=== PATIENT | female | born 1955 | race Caucasian/White ===

== ENCOUNTER 2020-07-02 07:16 | Outpatient (CLI) | payer OTHER, SELFPAY ==
[2020-07-02 07:52] LABS: Hematocrit 39.2 % (37.0-47.0); Hemoglobin 12.8 g/dL (12.0-15.0); Mean Corpuscular HGB Conc 32.7 g/dl (32-36); Mean Corpuscular Hemoglobin 29.3 pg (26-34); Mean Corpuscular Volume 89.7 fl (80-100); Platelet Count Result 235 k/mm3 (150-375); Red Blood Count 4.37 M/mm3 (4.2-5.4); Red Cell Distribution Width 12.9 % (11.5-14.5); White Blood Count 4.1 K/mm3 (4.5-10.0)
[2020-07-02 08:04] LABS: Alanine Aminotransferase 17 U/L (4-35); Albumin Level 3.8 g/dL (3.5-5.1); Alkaline Phosphatase 58 U/L (38-126); Anion Gap 5 mmol/L (8-16); Aspartate Amino Transferase 25 U/L (14-36); Bilirubin,Total 0.5 mg/dL (0.2-1.3); Blood Urea Nitrogen 15 mg/dL (7-17); Calcium 9.1 mg/dL (8.4-10.2); Carbon Dioxide 30 mmol/L (22-30); Chloride 104 mmol/L (98-107); Cholesterol 172 mg/dL (0-200); Estimated Glomerular Filt Rate 56; Glucose 102 mg/dL (65-105); HDL Direct 40 mg/dL; Potassium 4.3 mmol/L (3.4-5.0); Sodium 139 mmol/L (137-145); Triglycerides 91 mg/dL (<150)
[2020-07-02 08:15] LABS: LDL Cholesterol Direct 102 mg/dL
== END 2020-07-02 07:17 | disposition home or self-care (01) ==
LOC: ANHLAB 07:18
PROVIDERS: PCP Family Medicine; Visit Provider Physician Assistant Medical
DX: E78.2 Mixed hyperlipidemia (principal); I10 Essential (primary) hypertension
CPT/HCPCS: 36415; 80053; 80061; 84443; 85027

== ENCOUNTER 2020-07-26 07:16 | Outpatient (CLI) | payer OTHER, SELFPAY ==
[2020-07-26 08:10] LABS: Basophils Percent Auto 0.8 % (0.2-1.2); Eosinophils Absolute Auto 0.1 K/mm3 (0-0.3); Eosinophils Percent Auto 2.4 % (0-4.4); Hematocrit 39.8 % (37.0-47.0); Hemoglobin 13.2 g/dL (12.0-15.0); Immature Granulocyte Absolute 0.01 K/mm3 (0.00-0.031); Immature Granulocyte Percent A 0.2 % (0-0.5); Lymphocytes Absolute Auto 1.11 K/mm3 (0.9-3.2); Lymphocytes Percent Auto 22.1 % (18.3-44.2); Mean Corpuscular HGB Conc 33.2 g/dl (32-36); Mean Corpuscular Hemoglobin 29.6 pg (26-34); Mean Corpuscular Volume 89.2 fl (80-100); Mean Platelet Volume 8.8 fl (7.4-10.4); Monocytes Absolute Auto 0.3 K/mm3 (0.1-0.6); Monocytes Percent Auto 6.8 % (2.6-8.5); Neutrophils Absolute Auto 3.4 K/mm3 (1.3-6.7); Neutrophils Percent Auto 67.7 % (45.5-73.1); Platelet Count Result 215 k/mm3 (150-375); Red Blood Count 4.46 M/mm3 (4.2-5.4); Red Cell Distribution Width 12.9 % (11.5-14.5)
[2020-07-26 08:25] LABS: Alanine Aminotransferase 16 U/L (4-35); Cholesterol 147 mg/dL (0-200); Creatine Kinase 106 U/L (30-135); HDL Direct 46 mg/dL; Triglycerides 91 mg/dL (<150)
[2020-07-26 08:36] LABS: LDL Cholesterol Direct 76 mg/dL
== END 2020-07-26 07:17 | disposition home or self-care (01) ==
PROVIDERS: PCP Family Medicine; Visit Provider Physician Assistant Medical
DX: Z13.220 Encounter for screening for lipoid disorders (principal); D72.9 Disorder of white blood cells, unspecified; E78.2 Mixed hyperlipidemia
CPT/HCPCS: 36415; 80061; 82550; 84460; 85025

== ENCOUNTER → 2020-08-31 14:18 | Outpatient (CLI) | payer OTHER, SELFPAY ==
--- NOTE | ~2020-08-31 | XR_ITS ---
EXAMINATION: XR hip RT 2V w AP pelvis DATE: 08/31/2020 14:50 INDICATION: Right hip pain. TECHNIQUE: An anteroposterior view pelvis and 2 views of right hip were obtained. COMPARISON: None. FINDINGS: Bone alignment is normal. No fracture. There is moderate lumbar spondylosis. There is mild osteoarthritis of the hips. IMPRESSION: 1. Mild osteoarthritis of the hips. Reviewed, dictated and finalized at location A. [employer] CONSULTANT
== END ==
PROVIDERS: PCP Family Medicine; Visit Provider Physician Assistant Medical
DX: M25.551 Pain in right hip (principal); M16.0 Bilateral primary osteoarthritis of hip
CPT/HCPCS: 73502

== ENCOUNTER 2022-01-15 12:06 | Emergency (ER) | payer OTHER, SELFPAY ==
--- NOTE | ~2022-01-15 | XR_ITS ---
XR finger 3rd RT min 2V DATE: 01/15/2022 12:43 INDICATION: Laceration to distal tip of third digit TECHNIQUE: 3 portable views COMPARISON: None FINDINGS: There is prominent soft tissue bandage around the third digit. There is osteophyte is at the distal interphalangeal joint. No fracture or dislocation, periosteal reaction or bone destruction is detected. No apparent radiopaq ue soft tissue foreign body. IMPRESSION: No fracture or dislocation or radiopaque foreign body DIP osteoarthritis Reviewed, dictated and finalized at location A.
[2022-01-15 12:08] VITALS: BP 105/74; PULSE 91; RESP 18; TEMP 36.6; O2SAT 99
--- NOTE | 2022-01-15 12:49 | ED.GENADULT ---
HPI - General Adult General Chief complaint: Wound/Laceration Stated complaint: FINGER LAC Time Seen by Provider: 01/15/22 12:27 History of Present Illness HPI narrative: 66-year-old female presenting to the emergency department for evaluation of a avulsion laceration to her right third finger. Patient states she was injured her finger on a fan of a lawnmower. Patient initially presented to the [facility] care but was referred to the emergency department. Patient denies any other pain or injury. Patient states her tetanus is up-to-date, approximately 7 to 8 years ago. Patient does have an allergy to penicillin, hives. Related Data Allergies Allergy/AdvReac Type Severity Reaction Status Date / Time aspirin Allergy Unknown Unknown Verified 01/15/22 12:26 Penicillins Allergy Unknown Unknown Verified 01/15/22 12:26 rosuvastatin [From Crestor] AdvReac Intermediate muscle Verified 01/15/22 12:26 aches Review of Systems Review of Systems: CONSTITUTIONAL: Denies fever, chills, or sweats. EYES: Denies visual changes, redness, or discharge. ENT: Denies rhinorrhea, congestion, sore throat, or otalgia. CARDIOVASCULAR: Denies chest pain, palpitations, or edema. RESPIRATORY: Denies cough or dyspnea. GASTROINTESTINAL: Denies abdominal pain, nausea, vomiting, or diarrhea. GENITOURINARY: Denies dysuria or hematuria. SKIN: See HPI MUSCULOSKELETAL: Generalized pain of the affected finger. NEUROLOGIC: Denies headache, numbness, or weakness. [facility] Past Medical History Medical History Adult BMI 45.0-49.9 kg/sq m BMI 40.0-44.9, adult Morbid obesity Family History Family History Father Hypertension Mother Hypertension Family history of heart disease in male family member before age 55 Sibling Family history of malignant neoplasm of bone Social History Social History Alcohol intake: never Substance use: never Substance use type: does not use Additional living arrangements comments: Additional occupation/education comments: merchandising Gender identity (if verbalized by the patient): Female Sexual Orientation (if Verbalized by the Patient): Straight or Heterosexual Spiritual care concerns: No Agree to blood products: Yes Exam Narrative: APPEARANCE: Well appearing, no pain, no distress, well-nourished. HEAD: normocephalic, atraumatic. EYES: PERRLA/EOMI, conjunctivae clear. NOSE: Normal no drainage NECK: Supple. No adenopathy, no masses. RESPIRATORY: Airway patent, respirations nonlabored. Clear to auscultation bilaterally, no rales, rhonchi, wheezing. MUSCULOSKELETAL: Laceration to the tip of the distal third finger. Laceration is in close proximity to the fingernail but no involvement of the nail NEURO: Alert. Cranial nerves II through XII intact. Grossly intact SKIN: 2 cm laceration to distal third finger Course Vital Signs Vital signs: Vital Signs Temperature 97.9 F 01/15/22 12:08 Pulse Rate 91 01/15/22 12:08 Respiratory Rate 18 01/15/22 12:08 Blood Pressure 105/74 01/15/22 12:08 Pulse Oximetry 99 01/15/22 12:08 Oxygen Delivery Room Air 01/15/22 12:08 Temperature 97.9 F 01/15/22 12:08 Pulse Rate 91 01/15/22 12:08 Respiratory Rate 18 01/15/22 12:08 Blood Pressure 105/74 01/15/22 12:08 Pulse Oximetry 99 01/15/22 12:08 Oxygen Delivery Room Air 01/15/22 12:08 Procedures Laceration Laceration 1: Date: 01/15/22 Time: 14:53 Site: upper extremity and hand (right middle finger) Size (cm): 3 Description: linear Amount of anesthesia used (mL): 6 Pre-repair: wound explored and irrigated ====== Skin Level ====== Skin layer closed with: prolene Size (cm): 4-0 Number of sutures: 3 Technique: simple, interrupted =====
[2022-01-15] MEDS: CEPHALEXIN 250 MG CAPSULE PO (16:21)
== END 2022-01-15 16:22 | disposition home or self-care (01) ==
PROVIDERS: Emergency Provider Emergency Medicine; PCP Family Medicine
DX: S61.212A Laceration without foreign body of right middle finger without damage to nail, initial encounter (principal); W26.8XXA Contact with other sharp object(s), not elsewhere classified, initial encounter
CPT/HCPCS: 11740; 12002; 73140; 99283; A9270

== ENCOUNTER 2022-12-25 07:45 | Outpatient (CLI) | payer MEDICARE, OTHER, SELFPAY ==
[2022-12-25 08:07] LABS: Eosinophils Absolute Auto 0.1 K/mm3 (0-0.3); Eosinophils Percent Auto 2.7 % (0-4.4); Hematocrit 42.2 % (37.0-47.0); Hemoglobin 13.9 g/dL (12.0-15.0); Immature Granulocyte Absolute 0.02 K/mm3 (0.00-0.031); Immature Granulocyte Percent A 0.5 % (0-0.5); Lymphocytes Absolute Auto 0.82 K/mm3 (0.9-3.2); Lymphocytes Percent Auto 20.4 % (18.3-44.2); Mean Corpuscular HGB Conc 32.9 g/dl (32-36); Mean Corpuscular Hemoglobin 30.4 pg (26-34); Mean Corpuscular Volume 92.3 fl (80-100); Mean Platelet Volume 8.9 fl (7.4-10.4); Monocytes Absolute Auto 0.3 K/mm3 (0.1-0.6); Monocytes Percent Auto 7.2 % (2.6-8.5); Neutrophils Absolute Auto 2.7 K/mm3 (1.3-6.7); Neutrophils Percent Auto 68.2 % (45.5-73.1); Platelet Count Result 211 k/mm3 (150-375); Red Blood Count 4.57 M/mm3 (4.2-5.4); Red Cell Distribution Width 13.5 % (11.5-14.5)
[2022-12-25 08:20] LABS: Alanine Aminotransferase 17 U/L (6-35); Albumin Level 4.2 g/dL (3.5-5.1); Alkaline Phosphatase 57 U/L (38-126); Anion Gap 7 mmol/L (8-16); Aspartate Amino Transferase 20 U/L (14-36); Bilirubin,Total 0.7 mg/dL (0.2-1.3); Blood Urea Nitrogen 16 mg/dL (7-17); Calcium 8.9 mg/dL (8.4-10.2); Carbon Dioxide 26 mmol/L (22-30); Chloride 106 mmol/L (98-107); Cholesterol 206 mg/dL (0-200); Estimated Glomerular Filt Rate 56; Glucose 104 mg/dL (65-110); HDL Direct 46 mg/dL; Sodium 139 mmol/L (137-145); Triglycerides 142 mg/dL (<150)
[2022-12-25 08:31] LABS: LDL Cholesterol Direct 115 mg/dL
[2022-12-25 08:57] LABS: Free T4 Free Thyroxine 1.29 ng/mL (0.78-2.19)
[2022-12-28 06:33] LABS: Thyroid Peroxidase Antibodies <1 IU/mL (<9)
== END 2022-12-25 07:46 | disposition home or self-care (01) ==
PROVIDERS: PCP Family Medicine; Visit Provider Physician Assistant Medical
DX: Z13.29 Encounter for screening for other suspected endocrine disorder (principal); K59.09 Other constipation; I10 Essential (primary) hypertension; E78.5 Hyperlipidemia, unspecified; E66.01 Morbid (severe) obesity due to excess calories; D72.9 Disorder of white blood cells, unspecified
CPT/HCPCS: 36415; 80053; 80061; 84439; 84443; 85025; 86376

== ENCOUNTER 2023-01-09 07:16 | Outpatient (CLI) | payer MEDICARE, OTHER, SELFPAY ==
[2023-01-09 07:53] LABS: Basophils Absolute Auto 0.1 K/mm3 (0.0-0.1); Basophils Percent Auto 1.2 % (0.2-1.2); Eosinophils Absolute Auto 0.1 K/mm3 (0-0.3); Eosinophils Percent Auto 2.4 % (0-4.4); Hematocrit 40.5 % (37.0-47.0); Hemoglobin 13.4 g/dL (12.0-15.0); Immature Granulocyte Absolute 0.01 K/mm3 (0.00-0.031); Immature Granulocyte Percent A 0.2 % (0-0.5); Lymphocytes Absolute Auto 0.85 K/mm3 (0.9-3.2); Lymphocytes Percent Auto 20.2 % (18.3-44.2); Mean Corpuscular HGB Conc 33.1 g/dl (32-36); Mean Corpuscular Hemoglobin 30.2 pg (26-34); Mean Corpuscular Volume 91.4 fl (80-100); Mean Platelet Volume 9.3 fl (7.4-10.4); Monocytes Absolute Auto 0.4 K/mm3 (0.1-0.6); Monocytes Percent Auto 8.3 % (2.6-8.5); Neutrophils Absolute Auto 2.8 K/mm3 (1.3-6.7); Neutrophils Percent Auto 67.7 % (45.5-73.1); Platelet Count Result 234 k/mm3 (150-375); Red Blood Count 4.43 M/mm3 (4.2-5.4); Red Cell Distribution Width 13.1 % (11.5-14.5); White Blood Count 4.2 K/mm3 (4.5-10.0)
[2023-01-09 08:08] LABS: Anion Gap 5 mmol/L (8-16); Blood Urea Nitrogen 22 mg/dL (7-17); Calcium 8.6 mg/dL (8.4-10.2); Carbon Dioxide 28 mmol/L (22-30); Chloride 105 mmol/L (98-107); Estimated Glomerular Filt Rate 50; Glucose 101 mg/dL (65-110); Potassium 3.9 mmol/L (3.4-5.0); Sodium 138 mmol/L (137-145)
== END 2023-01-09 07:17 | disposition home or self-care (01) ==
PROVIDERS: PCP Family Medicine; Visit Provider Physician Assistant Medical
DX: D72.9 Disorder of white blood cells, unspecified (principal); N28.9 Disorder of kidney and ureter, unspecified
CPT/HCPCS: 36415; 80048; 85025

== ENCOUNTER 2023-02-12 07:31 | Outpatient (CLI) | payer MEDICARE, OTHER, SELFPAY ==
[2023-02-12 07:57] LABS: Anion Gap 5 mmol/L (8-16); Blood Urea Nitrogen 13 mg/dL (7-17); Calcium 8.8 mg/dL (8.4-10.2); Carbon Dioxide 30 mmol/L (22-30); Chloride 103 mmol/L (98-107); Estimated Glomerular Filt Rate 50; Glucose 106 mg/dL (65-110); Sodium 138 mmol/L (137-145)
== END 2023-02-12 07:32 | disposition home or self-care (01) ==
LOC: ANHLAB 07:33
PROVIDERS: PCP Family Medicine; Visit Provider Physician Assistant Medical
DX: N28.9 Disorder of kidney and ureter, unspecified (principal)
CPT/HCPCS: 36415; 80048

== ENCOUNTER 2023-04-01 07:47 | Outpatient (CLI) | payer MEDICARE, OTHER, SELFPAY ==
--- NOTE | ~2023-04-01 | NM_ITS ---
EXAMINATION: NM magdi stress w perfusion DATE: 04/01/2023 10:08 INDICATION: Chest pain. TECHNIQUE: Rest images were obtained following intravenous administration of 9 mCi Tc99m tetrofosmin (Myoview). The patient was infused intravenously with Lexiscan (regadenoson). Then, 28 mCi Tc99m tetr ofosmin (Myoview) was administered intravenously, and stress images were obtained. Data was reconstru cted into short axis and horizontal and vertical long axis SPECT images. Gated SPECT images were also obtained. COMPARISON: Myocardial perfusion imaging 01/01/17 FINDINGS: There is no definite reversible or fixed perfusion abnormality to suggest ischemia or infar ction. There is no segmental wall motion abnormality. Left ventricular ejection fraction measures > 70%. IMPRESSION: 1. No definite ischemia or infarct. 2. Normal left ventricular ejection fraction measuring >70%. Reviewed, dictated and finalized at location A.
--- NOTE | 2023-04-01 08:39 | EST_ITS ---
Patient Info Name: Taylor Mcfarland Age: 67 years : 1955 Gender: Female Ht: 49 in Wt: 212 lbs BSA: 1.91 m2 HR: 65 bpm BP: 140 / 82 mmHg Heart Rhythm: Sinus Rhythm Exam Date: 04/01/2023 9:00 AM Exam Location: [facility] Stress Patient Status: Outpatient Admit Date: 04/01/2023 Staff Ordering Physician: Bryson Degroot NP Attending Provider: Cesilia Gutiérrez Exercise Technologist: Renetta Allen CT Exercise Physician: Bakari Storey DO Exam Type: CA stress magdi w NM Study Info Indications R07.89 - Other chest pain A regadenoson stress test was performed. Summary 1. 1. Negative lexiscan stress test for ischemic ST changes by ECG criteria. 2. 2. Stable hemodynamics throughout the test. 3. 3. Nuclear scan to follow and will be reported separately. Please correlate with it. 4. 4. Patient informed of the above results. Protocol: Lexiscan Stress ECG Details Stage: REST Duration (min): 0 min : 56 sec HR (bpm): 67 SBP (mmHg): 140 DBP (mmHg): 82 Stage: REST Duration (min): 5 min : 12 sec HR (bpm): 66 SBP (mmHg): 140 DBP (mmHg): 82 Stage: STAGE 1 Duration (min): 0 min : 59 sec HR (bpm): 89 SBP (mmHg): 130 DBP (mmHg): 64 Stage: RECOVERY Duration (min): 1 min : 0 sec HR (bpm): 93 SBP (mmHg): 130 DBP (mmHg): 64 Stage: RECOVERY Duration (min): 2 min : 0 sec HR (bpm): 85 SBP (mmHg): 130 DBP (mmHg): 64 Stage: RECOVERY Duration (min): 3 min : 0 sec HR (bpm): 83 SBP (mmHg): 147 DBP (mmHg): 61 Stage: RECOVERY Duration (min): 3 min : 39 sec HR (bpm): 80 SBP (mmHg): 147 DBP (mmHg): 61 Rest HR: 66 bpm Peak HR: 96 bpm Rest Sys BP: 140 mmHg Peak Sys BP: 147 mmHg Max Pred HR: 155 bpm % Max Pred HR: 62 % Target HR: 132 bpm Max RPP: 14,112 bpm*mmHg Termination Reason: Completed protocol Cardiac Symptoms: Shortness of breath Total Time: 1 min : 0 sec Rest Ceballos BP: 82 mmHg Peak Ceballos BP: 61 mmHg Total Dose: 0.4 mg Resting ECG Sinus rhythm. Stress ECG No ST changes. Arrhythmias None. Report Signatures
== END 2023-04-01 07:48 | disposition home or self-care (01) ==
PROVIDERS: PCP Family Medicine; Visit Provider Physician Assistant Medical
DX: R07.9 Chest pain, unspecified (principal)
CPT/HCPCS: 78452; 93017; A9502; J2785

== ENCOUNTER → 2023-04-17 10:57 | Outpatient (CLI) | payer MEDICARE, OTHER, SELFPAY ==
--- NOTE | ~2023-04-17 | MM_ITS ---
EXAMINATION: MM screening jesus BI w ashly HISTORY: Screening mammogram TECHNIQUE: Craniocaudal and mediolateral oblique 3-D tomosynthesis images were obtained and synthetic 2-D images were generated. CAD analysis was submitted and interpreted. COMPARISON: 12/19/2016, 08/30/2015 BREAST PARENCHYMAL COMPOSITION: The breasts are almost entirely fatty. FINDINGS: No suspicious mass, calcification, or architectural distortion are identified in either tyrell ast to suggest malignancy. There has been no suspicious interval change. IMPRESSION: 1. No mammographic evidence of malignancy. 2. Recommend routine screening mammography in one year. BI-RADS Category 1: Negative Reviewed, dictated and finalized at location A.
--- NOTE | ~2023-04-17 | DEXA_ITS ---
Bone Density Report Name: ANDREINA BAUMANN Age: 67 Sex: Female Ethnicity: White Date of : 1955 Indication: postmenopausal; screening for osteoporosis; parental hip fracture; Referring Provider: Cesilia Gutiérrez Study: Bone densitometry was performed. Exam Date: April 17, 2023 Accession number: [id number] Bone Density: Region BMD T-score Z-score Classification AP Spine (L1-L4) 1.041 -0.1 1.8 Normal Femoral Neck (Left) 0.638 -1.9 -0.3 Osteopenia Total Hip (Left) 0.866 -0.6 0.6 Normal Femoral Neck (Right) 0.626 -2.0 -0.5 Osteopenia Total Hip (Right) 0.750 -1.6 -0.3 Osteopenia Total Hip Mean 0.808 -1.1 0.2 Osteopenia World Health Organization criteria for BMD impression classify patients as: Normal (T-score at or above -1.0), Osteopenia (T-score between -1.0 and -2.5), or Osteoporosis (T-score at or below -2.5). 10-year Fracture Risk(1): Major Osteoporotic Fracture 17% Hip Fracture 1.5% Reported Risk Factors: [place] (), Neck BMD=0.626, BMI=41.6, parental fracture (1) FRAX(R) Version 3.08. Fracture probability calculated for an untreated patient. Fracture probability may be lower if the patient has received treatment. Clinical Information Provided by Patient: Parent has had a hip fracture Patient maximum height was 60 Menopause Age: 52 Does not regularly consume dairy products Drinks caffeinated beverages Onset of menses at age 16 Number of children 2 Impression: The patient has low bone mass, based on the Right Femoral Neck T-score. The patient has an estimated ten-year risk of hip fracture of 1.5% and an estimated ten-year risk of major fracture of 17%, based on the WHO FRAX algorithm. The patient has risk factors, including: parental hip fracture. Discussion: BONE DENSITY IS LOW AT ONE OR MORE SKELETAL SITES. This patient's lowest T-score is low at one or more skeletal sites. It meets the World Health Organization's (WHO) criteria for ?low bone mass? (T-score between -1.0 and -2.5). The patient's 10-year risk of fracture as calculated by FRAX is less than the threshold where pharmacological therapy is recommended by the National Osteoporosis Foundation (NOF). However, all treatment decisions require clinical judgment and consideration of individual patient factors, including patient preferences, comorbidities, previous drug use, risk factors not captured in the FRAX model (e.g., frailty, falls, vitamin D deficiency, increased bone turnover, interval significant decline in bone density) and possible under or overestimation of fracture risk by FRAX. The patient should follow a healthful lifestyle (good nutrition with adequate calcium and vitamin D, and appropriate weight-bearing exercise). Follow-Up: Consider repeating this study in 2 to 3 years to reassess this patient's status, o
== END ==
PROVIDERS: PCP Physician Assistant Medical; Visit Provider Physician Assistant Medical
DX: Z12.31 Encounter for screening mammogram for malignant neoplasm of breast (principal); Z78.0 Asymptomatic menopausal state; M85.89 Other specified disorders of bone density and structure, multiple sites
CPT/HCPCS: 77063; 77067; 77080

== ENCOUNTER 2023-05-20 08:39 | Outpatient (CLI) | payer MEDICARE, OTHER, SELFPAY ==
[2023-05-20 09:18] LABS: Albumin Level 3.7 g/dL (3.5-5.1); Anion Gap 7 mmol/L (8-16); Blood Urea Nitrogen 13 mg/dL (7-17); Calcium 8.5 mg/dL (8.4-10.2); Carbon Dioxide 25 mmol/L (22-30); Chloride 106 mmol/L (98-107); Estimated Glomerular Filt Rate 50; Glucose 119 mg/dL (65-110); Phosphorus 3.1 mg/dL (2.5-4.5); Potassium 3.9 mmol/L (3.4-5.0); Sodium 138 mmol/L (137-145)
[2023-05-20 09:24] LABS: Complement C3 98 mg/dL (88-165)
[2023-05-20 10:31] LABS: Creatinine Urine 101.1 mg/dL; Total Protein Urine Random 13 mg/dL; Ur Ttl Prot Creatinine Ratio 0.13 mg/mg (0-0.20)
[2023-05-22 15:38] LABS: Albumin 3.6 g/dL (3.8-4.8); Alpha 1 Globulin 0.3 g/dL (0.2-0.3); Alpha 2 Globulin 0.6 g/dL (0.5-0.9); Beta 1 Globulin 0.4 g/dL (0.4-0.6); Gamma Globulin 0.8 g/dL (0.8-1.7)
[2023-05-24 01:54] LABS: Anti Glomerular Basement Memb <1.0 AI (<1.0)
[2023-05-25 22:49] LABS: ANCA Screen ATYP P-ANCA POS (Negative); Atyp PANCA Ttr Reflex Chg Test YES; Atypical P-ANCA Titer 1:40 Titer (<1:20)
[2023-05-26 00:12] LABS: Creatinine, Random Urine 155 mg/dL (20-275); Total Protein/Creatinine Ratio 52 mg/g creat (24-184)
== END 2023-05-20 08:40 | disposition home or self-care (01) ==
PROVIDERS: PCP Family Medicine; Visit Provider Internal Medicine Nephrology
DX: I12.9 Hypertensive chronic kidney disease with stage 1 through stage 4 chronic kidney disease, or unspecified chronic kidney disease (principal); N18.31 Chronic kidney disease, stage 3a
CPT/HCPCS: 36415; 80069; 82570; 83520; 84155; 84156; 84165; 84166; 86036; 86038; 86160; 86225

== ENCOUNTER → 2023-05-20 13:11 | Outpatient (CLI) | payer MEDICARE, OTHER, SELFPAY ==
--- NOTE | ~2023-05-20 | US_ITS ---
EXAMINATION: US renal BI DATE: 05/20/2023 13:42 INDICATION: Stage IIIa chronic kidney disease TECHNIQUE: Multiple ultrasound grayscale images of the kidneys were obtained. COMPARISON: None. FINDINGS: The right kidney measures 9.0 x 4.5 x 5.3 cm. The left kidney measures 10.3 x 4.0 x 4.8 cm. The kidne ys demonstrate normal echogenicity. There is no hydronephrosis in either kidney. No stones identifie d. The bladder is normal. IMPRESSION: 1. Normal kidneys without hydronephrosis. Reviewed, dictated and finalized at location A.
== END ==
PROVIDERS: PCP Family Medicine; Visit Provider Internal Medicine Nephrology
DX: I12.9 Hypertensive chronic kidney disease with stage 1 through stage 4 chronic kidney disease, or unspecified chronic kidney disease (principal); N18.31 Chronic kidney disease, stage 3a
CPT/HCPCS: 76775

== ENCOUNTER 2023-10-03 09:18 | Outpatient (CLI) | payer MEDICARE, OTHER, SELFPAY ==
[2023-10-03 09:59] LABS: Anion Gap 7 mmol/L (8-16); Blood Urea Nitrogen 13 mg/dL (7-17); Calcium 9.2 mg/dL (8.4-10.2); Carbon Dioxide 24 mmol/L (22-30); Chloride 108 mmol/L (98-107); Estimated Glomerular Filt Rate 55; Glucose 116 mg/dL (65-110); Phosphorus 3.5 mg/dL (2.5-4.5); Potassium 4.3 mmol/L (3.4-5.0); Sodium 139 mmol/L (137-145)
[2023-10-03 10:02] LABS: Creatinine Urine 111.5 mg/dL; Total Protein Urine Random 7 mg/dL; Ur Ttl Prot Creatinine Ratio 0.06 mg/mg (0-0.20)
== END 2023-10-03 09:19 | disposition home or self-care (01) ==
PROVIDERS: PCP Family Medicine; Visit Provider Internal Medicine Nephrology
DX: E55.9 Vitamin D deficiency, unspecified (principal); I12.9 Hypertensive chronic kidney disease with stage 1 through stage 4 chronic kidney disease, or unspecified chronic kidney disease; N25.81 Secondary hyperparathyroidism of renal origin; N18.31 Chronic kidney disease, stage 3a
CPT/HCPCS: 36415; 80069; 82306; 82570; 83970; 84156

== ENCOUNTER 2023-11-14 10:06 | Outpatient (CLI) | payer MEDICARE, OTHER, SELFPAY | END 2023-11-14 10:07 | disposition home or self-care (01) | LOC: ANHAUDIO 10:07 | PROVIDERS: PCP Family Medicine; Visit Provider Physician Assistant | DX: H90.3 Sensorineural hearing loss, bilateral (principal) | CPT/HCPCS: 92557; 92567 ==

== ENCOUNTER 2024-02-10 09:10 | Outpatient (CLI) | payer MEDICARE, OTHER, SELFPAY ==
[2024-02-10 10:12] LABS: Creatinine Urine 34.4 mg/dL; Total Protein Urine Random 11 mg/dL; Ur Ttl Prot Creatinine Ratio 0.32 mg/mg (0-0.20)
[2024-02-10 10:51] LABS: Anion Gap 6 mmol/L (4-12); Blood Urea Nitrogen 14 mg/dL (7-17); Calcium 8.8 mg/dL (8.4-10.2); Carbon Dioxide 25 mmol/L (22-30); Chloride 104 mmol/L (98-107); Estimated Glomerular Filt Rate 55; Glucose 99 mg/dL (65-110); Phosphorus 3.1 mg/dL (2.5-4.5); Potassium 3.9 mmol/L (3.4-5.0); Sodium 135 mmol/L (137-145)
== END 2024-02-10 09:11 | disposition home or self-care (01) ==
LOC: ANHLAB 09:13
PROVIDERS: PCP Family Medicine; Visit Provider Internal Medicine Nephrology
DX: I12.9 Hypertensive chronic kidney disease with stage 1 through stage 4 chronic kidney disease, or unspecified chronic kidney disease (principal); N18.31 Chronic kidney disease, stage 3a
CPT/HCPCS: 36415; 80069; 82570; 84156

== ENCOUNTER 2024-06-08 09:34 | Outpatient (CLI) | payer MEDICARE, OTHER, SELFPAY ==
[2024-06-08 10:58] LABS: Albumin Level 4.2 g/dL (3.5-5.1); Anion Gap 8 mmol/L (4-12); Blood Urea Nitrogen 19 mg/dL (7-17); Carbon Dioxide 24 mmol/L (22-30); Chloride 102 mmol/L (98-107); Estimated Glomerular Filt Rate 55; Glucose 102 mg/dL (65-110); Phosphorus 3.4 mg/dL (2.5-4.5); Potassium 3.8 mmol/L (3.4-5.0); Sodium 134 mmol/L (137-145)
[2024-06-08 11:41] LABS: Total Protein Urine Random 11 mg/dL; Ur Ttl Prot Creatinine Ratio 0.42 mg/mg (0-0.20)
[2024-06-08 11:55] LABS: Vitamin D 25 Hydroxy 31.5 ng/mL
== END 2024-06-08 09:35 | disposition home or self-care (01) ==
PROVIDERS: PCP Family Medicine; Visit Provider Internal Medicine Nephrology
DX: I12.9 Hypertensive chronic kidney disease with stage 1 through stage 4 chronic kidney disease, or unspecified chronic kidney disease (principal); N18.31 Chronic kidney disease, stage 3a; N25.81 Secondary hyperparathyroidism of renal origin; E55.9 Vitamin D deficiency, unspecified
CPT/HCPCS: 36415; 80069; 82306; 82570; 83970; 84156

== ENCOUNTER 2024-06-30 07:57 | Outpatient (CLI) | payer MEDICARE, OTHER, SELFPAY ==
[2024-06-30 08:16] LABS: Eosinophils Absolute Auto 0.2 K/mm3 (0-0.3); Eosinophils Percent Auto 3.7 % (0-4.4); Hematocrit 40.6 % (37.0-47.0); Hemoglobin 13.3 g/dL (12.0-15.0); Immature Granulocyte Absolute 0.01 K/mm3 (0.00-0.031); Immature Granulocyte Percent A 0.2 % (0-0.5); Lymphocytes Absolute Auto 1.03 K/mm3 (0.9-3.2); Lymphocytes Percent Auto 25.2 % (18.3-44.2); Mean Corpuscular HGB Conc 32.8 g/dl (32-36); Mean Corpuscular Hemoglobin 29.4 pg (26-34); Mean Corpuscular Volume 89.8 fl (80-100); Mean Platelet Volume 8.8 fl (7.4-10.4); Monocytes Absolute Auto 0.3 K/mm3 (0.1-0.6); Monocytes Percent Auto 8.3 % (2.6-8.5); Neutrophils Absolute Auto 2.5 K/mm3 (1.3-6.7); Neutrophils Percent Auto 61.6 % (45.5-73.1); Platelet Count Result 195 k/mm3 (150-375); Red Blood Count 4.52 M/mm3 (4.2-5.4); Red Cell Distribution Width 13.1 % (11.5-14.5); White Blood Count 4.1 K/mm3 (4.5-10.0)
[2024-06-30 08:30] LABS: Cholesterol 264 mg/dL (0-200); HDL Direct 54 mg/dL; Triglycerides 104 mg/dL (<150)
[2024-06-30 08:40] LABS: Hemoglobin A1C 5.3 % (<5.7)
[2024-06-30 08:41] LABS: LDL Cholesterol Direct 156 mg/dL
== END 2024-06-30 07:58 | disposition home or self-care (01) ==
PROVIDERS: PCP Family Medicine; Visit Provider Physician Assistant Medical
DX: E78.2 Mixed hyperlipidemia (principal); R73.09 Other abnormal glucose; I12.9 Hypertensive chronic kidney disease with stage 1 through stage 4 chronic kidney disease, or unspecified chronic kidney disease; N18.9 Chronic kidney disease, unspecified; G89.29 Other chronic pain; M25.561 Pain in right knee
CPT/HCPCS: 36415; 80061; 83036; 85025

== ENCOUNTER 2024-11-19 08:39 | Outpatient (CLI) | payer MEDICARE, OTHER, SELFPAY ==
--- OUTSIDE RECORDS SUMMARY | 2024-11-19 08:47 | XMS_ITS | Continuity of Care Document ---
Author Organization [facility] Address [address] [address] [place] [address] Phone Care Team Providers Care Supervisor Mechanic Boilermaking Name Role Phone Cassia Dotson Unavailable Unavaila [...] OFFICE/OUTPA TIENT VISIT EST [facility], [address], [place], [address], [place] tel:[phone] [facility] Trochanteric bursitis, right hip 3 Amber Antony. [address], [place], [address]. tel:[phone] Referring Provider: Clay Milton, [address], [place], [address]. tel:[phone] OFFICE/OUTPA TIENT VISIT EST [facility], [address], [place], [address], tel:[phone] [facility] Pain in right hipBody mass index [BMI]40.0-44.9 , adultTrochante katty bursitis, right hip 3 [address] valeriano [address]. [address] , [place], [place], [id number] . tel:[phone] Referring Provider: Clay Milton, [address], [place], [address]. tel:[phone] OFFICE/OUTPA TIENT VISIT EST [facility], [address] [address], [place], [address], [place] tel:[phone] [facility] Status post total right knee replacement Nov- 2 L'Hommedi eu [address]. [address] , [place], [place], [id number] . tel:[phone] Referring Provider: Clay Milton, [address], [place], [address]. tel:[phone] [facility], [address] [facility], [place], [address], [place] tel:[phone] [facility] Status post total right knee replacementBod y mass index [BMI]40.0-44.9 , adult 2 [address] eu [address]. [address] [facility] [address] , [place], [place], [address] . tel:[phone] Referring Provider: Clay Milton, [address], [place], [address]. tel:[phone] [facility], [address] [address], [place], [address], [place] tel:[phone] [facility] Status post total right knee replacementPri renzo osteoarthritis of right knee 1 [address] eu [address]. [address] , [place], [place], [address] . tel:[phone] [facility], [address] [facility], [place], [address], [place] tel:[phone] [facility] Status post total right knee replacement 1 [address] eu [address] , [place], [place], [address] . tel:[phone] Referring Provider: Clay Milton, [address], [place], [address]. tel:[phone] [facility], [address] [facility] [address], [place], [address], [place] tel:[phone] [facility] Body mass index [BMI]40.0-44.9 , adultStatus post total right knee replacement 0 1 Amber Antony. [address], [place], [address]. tel: [phone] [facility], [address] [address], [place], [address], [place] tel:[phone] [facility] Unilateral primary osteoarthritis , right knee May-2 1 [address] eu [address]. [address] , [place], [place], [address] . tel: [phone] [facility], [address] [facility] [address] [address], [place], [address], [place] tel:[phone] [facility] Primary osteoarthritis of right kneeStatus post total right knee replacement Apr-2 1 [address] eu [address]. [address] , [place], [place], [address] . tel: [phone] OFFICE/OUTPA TIENT VISIT EST [facility], [address] [facility] [address], [place], [address], [place] tel:[phone] [facility] Primary osteoarthritis of right knee Apr-2 0- 1 L'Hom[address] eu [address]. [address] , [place], [place], [address] . tel: [phone] OFFICE/OUTPA TIENT VISIT NEW [facility], [address] [facility] [address], [place], [address], [place] tel:[phone] [facility] Pain in right kneePrimary osteoarthritis of right kneeBody mass index [BMI]40.0-44.9 , adult December- 1 [address] eu [address]. [address] , [place], [place], [address] . tel: [phone] OFFICE/OUTPA TIENT VISIT EST [facility], [address] [address], [place], [address], [place] tel:[phone] [facility] Pain in right kneeBody mass index (BMI) 40.0-44.9, adultPrimary osteoarthritis of right kneeHistory of total left knee replacement 7 [address] eu [address]. [address] [facility] [address], [place], [place], [address] . tel:[phone] OFFICE/OUTPA TIENT VISIT EST [facility], [address] [facility] [address], [place], [address], [place] tel:[phone] [facility] Osteoarthritis , knee 4 L'Hom[address] eu [address]. [address] [facility] [address], [place], [place], [address] . tel:[phone] Referring Provider: Clay Milton, [address], [place], [address]. tel:[phone] OFFICE/OUTPA TIENT VISIT EST [facility], [address] [address], [place], [address], [place] tel:[phone] [facility] RT KNEE (chief complaint) Osteoarthritis , kneeKnee pain 4 Lard[address] Erazoa. [address] [facility] [address], [place], [address]. tel:[phone] Referring Provider: Clay Milton, [address], [place], [address]. tel:[phone] OFFICE/OUTPA TIENT VISIT EST [facility], [address], [address], [place] tel:[phone] [facility] LT TKA, RT KNEE (chief complaint) Knee joint replacementAft ercare following joint replacement 3 [address]. [address] [facility] [address], [place], [place], [address] . tel:[phone] Referring Provider: Clay Milton, [address], [place], [address]. tel:[phone] [facility], [address], [address], [place] tel:[phone] [facility] Rev Lt TKA (chief complaint) Aftercare following joint replacementKne e joint replacementPai n in joint involving lower leg 1-201 2 [address] eu [address]. [address] [facility] [address], [place], [place], [address] . tel:[phone] Referring Provider: Clay Milton, [address], [place], [address]. tel:[phone] [facility], [address] [address], [place], [address], [place] tel:[phone] [facility] Aftercare following joint replacementKne e joint replacementPai n in joint involving lower leg 9-201 2 [address]. [address] [facility] [address] , [place], [place], [address] . tel:[phone] Referring Provider: Clay Milton, [address], [place], [address]. tel:[phone] [facility], [address], [address], [place] tel:[phone] [facility] Pain in joint involving lower legKnee joint replacement 0-201 2 [address]. [address] [facility] [address] , [place], [place], [address] . tel:[phone] Referring Provider: Clay Milton, [address], [place], [address]. tel:[phone] [facility], [address], [address], [place] tel:[phone] [facility] No Information 6-201 2 [address]. [address] [facility] [place], [address] . tel: [phone] Family History Family Member Type Diagnosis Age At Onset Sister Problem Cancer, pancreas Mother Problem Cardiovascular disease Mother Problem Cancer, lung Mother Problem Hypertension Father Problem Hypertension Father Problem Cardiovascular disease Payers Payer name Insurance type Covered republican ID Tesfaye matta(s) [employer] Medicare PPO OT [id number] [place] [address] [place] [id number] Social History Type Description Quantity Date Captured [...] Related to Body mass index [BMI]40.0-44.9, adult Giving encouragement to exercise Related to Body mass index (BMI) 40.0-44.9, adult Apply ice 20 min per hour Relate d to Primary osteoarthritis of right knee Apply moist heat or cold 20 min per hour. Related to Osteoarthritis, knee Take medication/NSAID as directe d. Related to Osteoarthritis, knee Physical activity counseling Rel ated to Dietary Surveillance Counseling Activity as tolerated Physical activity counseling Rel ated to Dietary Surveillance counseling Physical activity counseling Rel ated to Dietary Surveillance counseling Activity as tolerated Physical activity counseling Rel ated to Dietary Surveillance counseling Assessments Type Assessment Date assessment Trochanteric bursitis, right hip Patient Care Teams Name Effective Dates (start - stop) Status Members No Information
--- OUTSIDE RECORDS SUMMARY | 2024-11-19 08:47 | XMS_ITS | Referral Summary ---
Author Organization [facility] Address [address] [place] [address] Care Team Providers Care Adobe Architect Name Role Phone Cesilia Gutiérrez Primary Care Provider [phone] Mamadou Piedra MD Unavailable [phone] Allergies Active Allergy Reactions Criticality Noted Date Comments Aspirin Hives Medium 03/27/2023 Penicillin Hives Medium 03/27/2023 Medications amlodipine-sb coxib 2.5-200 mg tablet 5 mg 1 Active potassium chloride ER 20 mEq CR tablet 1 tablet (20 mEq total) 1 Active ezetimibe (ZETIA) 10 mg tablet 1 tablet (10 mg total) 1 Active omeprazole (PriLOSEC) 20 mg capsule 1 capsule (20 mg total) 1 Active Contrave 8-90 mg tablet extended release 3 Active cyanocobalamin (Vitamin B-12) 1,000 mcg tabletIndicatio ns:Prevention of Vitamin B12 Deficiency Take 1 tablet (1,000 mcg total) by mouth daily 90 tablet 3 3 Active Additional Information Patient not taking.Reported on 06/26/2023 Active Problems Problem Noted Date Diagnosed Date Leukopenia 03/25/2023 Social History Tobacco Use Types Packs/Day Years Used Date Smoking Tobacco: Never Passive Smoke Exposure: Never Smokeless Tobacco: Never Tobacco Cessation:Counseling Given: Not Answered AUDIT-C Answer Date Recorded Q1: How often do you have a drink containing alcohol? Never 03/27/2023 Q2: How many drinks containi ng alcohol do you have on a typical day when you are drinking? Patient does not drink Q3: How often do you have si x or more drinks on one occasion? Never 03/27/2023 Personal Safety Answer Date Recorded Getting School Help Needed Not on file Comments Unknown Sex and Gender Information Value Date Recorded Sex Assigned at Not on file Legal Sex Female 1:17 AM WEARING APPAREL FOLDER Gender Identity Not on file Sexual Orientation Not on file Last Filed Vital Signs Vital Sign Reading Time Taken Comments Blood Pressure 141/82 05/06/2024 1:19 PM CDT Pulse 63 05/06/2024 1:19 PM CDT Temperature 36.3 C (97.3 F) 05/06/2024 1:19 PM CDT Respiratory Rate 16 05/06/2024 1:19 PM CDT Oxygen Saturation 98% 05/06/2024 1:19 PM CDT Inhaled Oxygen Concentration - - Weight 91.6 kg (202 lb) 05/06/2024 1:19 PM CDT Height 149.9 cm (4' 11 ) 06/26/2023 1:51 PM WEARING APPAREL FOLDER Body Mass Index 40.8 06/26/2023 1:51 PM WEARING APPAREL FOLDER Plan of Treatment Not on file Insurance HU[employer] CHOICE MEDICARE PPO [employer] HU[employer]NA CHOICE MEDICARE PPO FOR LIFE Care Teams Adobe Architect Relationship Specialty Start Date End Date Cesilia Gutiérrez PA [address] [place] [address] PCP - General Physician Livestock Showman 03/18/23 Mamadou Piedra MD [facility] [address] [address] Medical Oncologist/Hematologis t Hematology and Oncology 04/03/23
--- OUTSIDE RECORDS SUMMARY | 2024-11-19 08:47 | XMS_ITS | Clinical Summary ---
Author Organization [facility] Address [address] [place] [address] Care Team Providers Care Press Box Custodian Name Role Phone Cesilia Gutiérrez Primary Care Provider Mamadou Piedra MD Unavailable [phone] Allergies Active Allergy Reactions Criticality Noted Date [...] Problem Noted Date Diagnosed Date Leukopenia 03/25/2023 Surgical History Surgery Date Site/Laterality Comments KIDNEY SURGERY 05/19/1982 - 06/18/1982 TOTAL KNEE ARTHROPLASTY 06/19/2013 - 07/18/2013 TOTAL KNEE ARTHROPLASTY 06/19/2022 - 07/18/2022 Medical History Medical History Date Comments Hypertension Hypercholesteremia Family History Medical History Relation Name Comments Car Accident Brother Heart disease Father Lung cancer Mother Pancreatic cancer Sister Relation Name Status Comments Brother Father Mother Sister Social History Tobacco Use Types Packs/Day Years [...] on file Legal Sex Female 1:17 AM PRODUCTION POTTER Gender Identity Not on file Sexual Orientation Not on file Obstetrics History Last Filed Vital Signs Vital Sign Reading [...] cm (4' 11 ) 06/26/2023 1:51 PM PRODUCTION POTTER Body Mass Index 40.8 06/26/2023 1:51 PM PRODUCTION POTTER Plan of Treatment Health Maintenance Due Date Last Done Comments Breast Cancer Screening-Mammogram 1957 Colon Cancer Screening-Colonoscopy 1957 Depression Screening 1957 Fall Risk Assessment 1957 Hepatitis C Screening 1957 Osteoporosis Screening-Bone Density Scan 1957 DTaP/Tdap/Td Vaccine (1 - Tdap) 1968 Hepatitis B Screening 1975 Pneumococcal vaccine 65+ (1 of 1 - PCV) 2007 Zoster Vaccine (1 of 2) 2007 Well Visit 65+ 2022 Covid-19 Vaccine (5 - 2023-2 5 season) 2024 05/29/2022, 07/21/2021, 11/15/2020, Additional history exists Influenza Vaccine (#1) 2024 Insurance HU[employer]NA CHOICE MEDICARE PPO [employer] HU[employer]NA CHOICE MEDICARE PPO FOR LIFE Care Teams Press Box Custodian Relationship Specialty Start Date End Date Cesilia Gutiérrez PA [address] [place], [place] [id number] PCP - General Physician Consumer Services Advisor 03/18/23 Mamadou Piedra MD [facility] [address] Medical Oncologist/Hematologis t Hematology and Oncology 04/03/23
--- OUTSIDE RECORDS SUMMARY | 2024-11-19 08:47 | XMS_ITS | Clinical Summary ---
Author Organization [facility] Care Team Providers Care Car Supplier Name Role Phone Unavailable Primary Care Provider Unavailabl e Social History Tobacco Use Types Packs/Day Years Used Date Smoking Tobacco: Never Assessed Comments Unknown Sex and Gender Information Value Date Recorded Sex Assigned at Not on file Legal Sex Female 6:40 PM CDT Gender Identity Not on file Sexual Orientation Not on file Plan of Treatment Health Maintenance Due Date Last Done Comments DEXA Bone Density 1957 Hepatitis C Virus (HCV) Screening 1957 TdaP Immunization 1957 Colonoscopy 2002 Colorectal Cancer Screening 2002 Cologuard 2007 Immunochemical Fecal Occult Blood 2007 Mammogram 2007 Pneumococcal Immunization (5 0+ years) (1 of 1 - PCV) 2007 Zoster Immunization (1 of 2) 2007 Influenza Immunization (#1) 2024 SARS-COV-2 Immunization ( season) 2024 Respiratory Syncytial Virus (RSV) Immunization (Adult) (1 - 1-dose 75+ series) 2032 Hepatitis B Immunization Aged Out No longer eligible based on patient's age to complete this topic Meningococcal Immunization (ACWY) Aged Out No longer eligible based on patient's age to complete this topic Rotavirus Immunization Aged Out No lo nger eligible based on patient's age to complete this topic
[2024-11-19 10:53] LABS: Albumin Level 4.2 g/dL (3.5-5.1); Anion Gap 9 mmol/L (4-12); Blood Urea Nitrogen 17 mg/dL (7-17); Calcium 8.8 mg/dL (8.4-10.2); Carbon Dioxide 26 mmol/L (22-30); Chloride 104 mmol/L (98-107); Estimated Glomerular Filt Rate 52; Glucose 94 mg/dL (65-110); Phosphorus 3.2 mg/dL (2.5-4.5); Potassium 3.8 mmol/L (3.4-5.0); Sodium 139 mmol/L (137-145)
[2024-11-19 12:20] LABS: Creatinine Urine 112.1 mg/dL; Total Protein Urine Random 10 mg/dL; Ur Ttl Prot Creatinine Ratio 0.09 mg/mg (0-0.20)
== END 2024-11-19 08:40 | disposition home or self-care (01) ==
LOC: ANHLAB 08:41
PROVIDERS: PCP Family Medicine; Visit Provider Internal Medicine Nephrology
DX: I12.9 Hypertensive chronic kidney disease with stage 1 through stage 4 chronic kidney disease, or unspecified chronic kidney disease (principal); N18.31 Chronic kidney disease, stage 3a
CPT/HCPCS: 36415; 80069; 82570; 84156

== ENCOUNTER 2025-05-21 08:12 | Outpatient (CLI) | payer MEDICARE, OTHER, SELFPAY ==
--- OUTSIDE RECORDS SUMMARY | 2023-04-15 10:15 | XMS_ITS | Continuity of Care Document ---
Author Organization [facility] Address [address] [address] [place] [address] Phone Care Team Providers Care Cco & President Name Role Phone Cassia Dotson Unavailable Unavaila ble Allergies, Adverse Reactions, Alerts Substance Reaction Status Criticality strawberry Active No Information tomato Active No Information Penicillins Active No Information aspirin Active No Information caffeine Active No Information Medications Medication Instructions Dosage Effective Dates (start - stop) Status Comments AMLODIPINE BESYLATE-BENAZEPRI L (unknown strength) take 1 capsule by oral route every day Not Available - Active meloxicam 7.5 mg tablet take 1 tablet (7.5MG) by oral route 1 times every day - Active amlodipine 5 mg tablet take 1 tablet by oral route every day 5 MG - Active POTASSIUM CHLORIDE (unknown strength) take 1 tablet by oral route every day with food Not Available - Active ezetimibe 10 mg tablet take 1 tablet by oral route every day 10 MG - Active Procedures Procedure Date X-RAY HIP UNI W PELVIS 2-3 VIEWS 2022 Methylprednisolone 80mg/ml inj 23 Drugs unclassified injection DRAIN/INJECT JOINT/BURSA OFFICE/OUTPATIENT VISIT EST X-RAY HIP UNI W PELVIS 2-3 VIEWS 2022 Methylprednisolone 80mg/ml inj 23 Drugs unclassified injection DRAIN/INJECT JOINT/BURSA OFFICE/OUTPATIENT VISIT EST RADEX KNE 3 VIEWS OFFICE/OUTPATIENT VISIT EST POSTOP FOLLOW-UP VISIT RADEX KNE 3 VIEWS POSTOP FOLLOW-UP VISIT POSTOP FOLLOW-UP VISIT TOTAL KNEE ARTHROPLASTY OFFICE/OUTPATIENT VISIT EST RADEX KNE COMPL 4/MORE VIEWS Methylprednisolone 80mg/ml inj 21 Drugs unclassified injection DRAIN/INJECT JOINT/BURSA OFFICE/OUTPATIENT VISIT NEW RADEX KNE COMPL 4/MORE VIEWS OFFICE/OUTPATIENT VISIT EST OFFICE/OUTPATIENT VISIT EST OFFICE/OUTPATIENT VISIT EST MU Reporting OFFICE/OUTPATIENT VISIT EST MU Reporting POSTOP FOLLOW-UP VISIT MU Reporting POSTOP FOLLOW-UP VISIT Advance Directives Directive Yes / No Effective Date File Name No Information Encounters Encounter Description Practice Location Reason(s) For Visit Diagnoses Date Provider Providers Copied on Encounter OFFICE/OUTPA TIENT VISIT EST [facility], [address], [place], [address], [place] tel:[phone] [facility] Trochanteric bursitis, right hip 3 Amber Antony. [address], [place], [address]. tel:[phone] Referring Provider: Clay Milton, [address], [place], [address]. tel:[phone] OFFICE/OUTPA TIENT VISIT EST [facility], [address], [place], [address], tel:[phone] [facility] Pain in right hipBody mass index [BMI]40.0-44.9 , adultTrochante katty bursitis, right hip 3 [address] [place]. [address] , [place], [place], [address] . tel:[phone] Referring Provider: Clay Milton, [address], [place], [address]. tel:[phone] OFFICE/OUTPA TIENT VISIT EST [facility], [address] [address], [place], [address], [place] tel:[phone] [facility] Status post total right knee replacement Nov- 2 [address] [place]. [address] , [place], [place], [address] . tel:[phone] Referring Provider: Clay Milton, [address], [place], [address]. tel:[phone] [facility], [address] [facility], [place], [address], [place] tel:[phone] [facility] Status post total right knee replacementBod y mass index [BMI]40.0-44.9 , adult 2 [address] [place]. [address] [facility] [address] , [place], [place], [address] . tel:[phone] Referring Provider: Clay Milton, [address], [place], [address]. tel:[phone] [facility], [address] [address], [place], [address], [place] tel:[phone] [facility] Status post total right knee replacementPri renzo osteoarthritis of right knee 1 [address] [place]. [address] , [place], [place], [address] . tel:[phone] [facility], [address] [facility], [place], [address], [place] tel:[phone] [facility] Status post total right knee replacement 1 [address] [place] , [place], [place], [address] . tel:[phone] Referring Provider: Clay Milton, [address], [place], [address]. tel:[phone] [facility], [address] [address], [place], [address], [place] tel:[phone] [facility] Body mass index [BMI]40.0-44.9 , adultStatus post total right knee replacement 0 1 Amber [address]. [address], [place], [address]. tel: [phone] [facility], [address] [address], [place], [address], [place] tel:[phone] [facility] Unilateral primary osteoarthritis , right knee May-2 1 [address] [place]. [address] , [place], [place], [address] . tel: [phone] [facility], [address] [facility] [address] [address], [place], [address], [place] tel:[phone] [facility] Primary osteoarthritis of right kneeStatus post total right knee replacement Apr-2 1 [address] [place] , [place], [place], [address] . tel: [phone] OFFICE/OUTPA TIENT VISIT EST [facility], [address] [facility] [address], [place], [address], [place] tel:[phone] [facility] Primary osteoarthritis of right knee Apr-2 0- 1 [address] [place] , [place], [place], [address] . tel: [phone] OFFICE/OUTPA TIENT VISIT NEW [facility], [address] [facility] [address], [place], [address], [place] tel:[phone] [facility] Pain in right kneePrimary osteoarthritis of right kneeBody mass index [BMI]40.0-44.9 , adult December- 1 [address] [place]. [address] , [place], [place], [address] . tel: [phone] OFFICE/OUTPA TIENT VISIT EST [facility], [address] [facility] [address], [place], [address], [place] tel:[phone] [facility] Pain in right kneeBody mass index (BMI) 40.0-44.9, adultPrimary osteoarthritis of right kneeHistory of total left knee replacement 7 [address] [place]. [address] [facility], [place], [place], [address] . tel:[phone] OFFICE/OUTPA TIENT VISIT EST [facility], [address] [facility] [address], [place], [address], [place] tel:[phone] [facility] Osteoarthritis , knee 4 [address] [place]. [address] [facility], [place], [place], [address] . tel:[phone] Referring Provider: Clay Milton, [address], [place], [address]. tel:[phone] OFFICE/OUTPA TIENT VISIT EST [facility], [address] [address], [place], [address], [place] tel:[phone] [facility] RT KNEE (chief complaint) Osteoarthritis , kneeKnee pain 4 [address] [place]. [address] [facility] [address], [place], [address]. tel:[phone] Referring Provider: Clay Milton, [address], [place], [address]. tel:[phone] OFFICE/OUTPA TIENT VISIT EST [facility], [address], [address], [place] tel:[phone] [facility] LT TKA, RT KNEE (chief complaint) Knee joint replacementAft ercare following joint replacement 3 [address] [place]. [address] [facility], [place], [place], [address] . tel:[phone] Referring Provider: Clay Milton, [address], [place], [address]. tel:[phone] [facility], [address], [address], [place] tel:[phone] [facility] Rev Lt TKA (chief complaint) Aftercare following joint replacementKne e joint replacementPai n in joint involving lower leg 1-201 2 [address] [place] [address] [facility], [place], [place], [address] . tel:[phone] Referring Provider: Clay Milton, [address], [place], [address]. tel:[phone] [facility], [address] [address], [place], [address], [place] tel:[phone] [facility] Aftercare following joint replacementKne e joint replacementPai n in joint involving lower leg 9-201 2 [address] [place]. [address] [facility] [address] , [place], [place], [address] . tel:[phone] Referring Provider: Clay Milton, [address], [place], [address]. tel:[phone] [facility], [address], [address], [place] tel:[phone] [facility] Pain in joint involving lower legKnee joint replacement 0-201 2 [address] [place] [address] [facility] [address] , [place], [place], [address] . tel:[phone] Referring Provider: Clay Milton, [address], [place], [address]. tel:[phone] [facility], [address], [address], [place] tel:[phone] [facility] No Information 6-201 2 [address] [place] [address] [facility] [place], [address] . tel: [phone] Family History Family Member Type Diagnosis Age At Onset Sister Problem Cancer, pancreas Mother Problem Cardiovascular disease Mother Problem Cancer, lung Mother Problem Hypertension Father Problem Hypertension Father Problem Cardiovascular disease Payers Payer name Insurance type Covered republican ID Tesfaye matta(s) [employer] Medicare PPO OT [id number] [address] [place] [address] OT [id number] Social History Type Description Quantity Date Captured Comments Alcohol Use Details Unknown Caffeine Use Details Unknown Tobacco Use Status No Information Smoking Status No Information Sex Female Chief Complaint And Reason For Visit No Information Reason For Referral Reason For Referral No Information Plan Of Treatment Date Type Action Status Referral Ordered: X-RAY HIP UNI W PELVIS 2-3 VIEWS RT hip ordered Referral Ordered: RADEX KNE 3 VIEWS RT ordered Referral Ordered: RADEX KNE COMPL 4/MORE VIEWS RT knee ordered Referral Ordered: RADEX KNE COMPL 4/MORE VIEWS RT ordered Referral Ordered: RADEX KNE COMPL 4/MORE VIEWS Bilateral ordered Referral Ordered: RADEX KNE 3 VIEWS LT ordered History Of Present Illness Encounter Date Complaint History Of Prese nt Illness No Information Functional Status Date Functional Assessmen t No Information Instructions Date Instruction Additional Infor mation Giving encouragement to exercise Related to Body mass index [BMI] 40.0-44.9, adult Giving encouragement to exercise Related to Body mass index [BMI] 40.0-44.9, adult Giving encouragement to exercise Related to Body mass index [BMI] 40.0-44.9, adult Giving encouragement to exercise Related to Body mass index [BMI]40.0-44.9, adult Apply ice 20 min per hour Relate d to Primary osteoarthritis of right knee Giving encouragement to exercise Related to Body mass index (BMI) 40.0-44.9, adult Take medication/NSAID as directe d. Related to Osteoarthritis, knee Apply moist heat or cold 20 min per hour. Related to Osteoarthritis, knee Physical activity counseling Rel ated to Dietary Surveillance Counseling Physical activity counseling Rel ated to Dietary Surveillance counseling Activity as tolerated Physical activity counseling Rel ated to Dietary Surveillance counseling Activity as tolerated Physical activity counseling Rel ated to Dietary Surveillance counseling Assessments Type Assessment Date assessment Trochanteric bursitis, right hip Patient Care Teams Name Effective Dates (start - stop) Status Members No Information
--- OUTSIDE RECORDS SUMMARY | 2025-05-21 08:17 | XMS_ITS | Encounter Summary ---
Author Organization [facility] Address [address] [place] [address] Phone Care Team Providers Care Business Banking Representative Name Role Phone Cesilia Gutiérrez Primary Care Provider [phone] Mamadou Piedra MD Unavailable [phone] Encounter Details Date Type Department Care Team (Late st Contact Info) Description 05/19/2025 Results Follow-Up [facility] Medicine Physicians [facility] Hematology [address] [facility] [address] [place] [address] Aviva Albarado, KADI [address] [place] [address] Comprehensive metabolic panel, CBC with auto differential, Differential, auto, Additional followed-up results: 4 Social History Tobacco Use Types Packs/Day Years Used Date Smoking Tobacco: Never Passive Smoke Exposure: Never Smokeless Tobacco: Never AUDIT-C Answer Date Recorded Q1: How often do you have a drink containing alcohol? Never 03/27/2023 Q2: How many drinks containi ng alcohol do you have on a typical day when you are drinking? Patient does not drink Q3: How often do you have si x or more drinks on one occasion? Never 03/27/2023 Comments Unknown Sex and Gender Information Value Date Recorded Sex Assigned at Not on file Legal Sex Female 1:17 AM PAINT POURER Gender Identity Not on file Sexual Orientation Not on file documented as of this encounter Miscellaneous Notes * Telephone Encounter - Cesilia Umaña - 05/19/2025 3:29 PM CDT Left VM with results feedback and plan moving forward. ----- Message from Aviva Albarado NP sent at 05/19/2025 2:22 PM CDT ----- Camachos Tsat is low, ferritin is borderline. I would recommend she starts taking an oral iron supplement every other day. We can repeat labs in 3 months with a follow up in 6 months. Thanks. ----- Message ----- From: Interface, Lab Results In Sent: 05/18/2025 2:14 PM CDT To: Aviva Albarado NP * Result Encounter Note - Aviva Albarado NP - 05/19/2025 2:22 PM CDT Camachos Tsat is low, ferritin is borderline. I would recommend she starts taking an oral iron supplement every other day. We can repeat labs in 3 months with a follow up in 6 months. Thanks. documented in this encounter Plan of Treatment Scheduled Orders Name Type Priority Associated Diagnoses Orde r Schedule CBC with auto differential Lab Routine Neutropenia, unspecified type Anemia due to vitamin B12 deficiency, unspecified B12 deficiency type H/O iron deficiency anemia Expected: 11/17/2025, Expires: 02/15/2026 Ferritin Lab Routine Neutropenia, unspecified type Anemia due to vitamin B12 deficiency, unspecified B12 deficiency type H/O iron deficiency anemia Expected: 11/17/2025, Expires: 02/15/2026 Iron profile w/ IBC Lab Routine Neutropenia, unspecified type Anemia due to vitamin B12 deficiency, unspecified B12 deficiency type H/O iron deficiency anemia Expected: 11/17/2025, Expires: 02/15/2026 CBC with auto differential Lab Routine Neutropenia, unspecified type Anemia due to vitamin B12 deficiency, unspecified B12 deficiency type H/O iron deficiency anemia Expected: 08/19/2025 (Approximate), Expires: 11/17/2025 Ferritin Lab Routine Neutropenia, unspecified type Anemia due to vitamin B12 deficiency, unspecified B12 deficiency type H/O iron deficiency anemia Expected: 08/19/2025 (Approximate), Expires: 11/17/2025 Iron profile w/ IBC Lab Routine Neutropenia, unspecified type Anemia due to vitamin B12 deficiency, unspecified B12 deficiency type H/O iron deficiency anemia Expected: 08/19/2025 (Approximate), Expires: 11/17/2025 documented as of this encounter Visit Diagnoses Diagnosis Neutropenia, unspecified type- Primary Anemia due to vitamin B12 deficiency, unspecified B12 deficiency type H/O iron deficiency anemia documented in this encounter Orders Appointment Requests Count Last Ordered Date Fi rst Ordered Date [facility] CLINIC APPOINTMENT REQUEST 1 025 [facility] LAB APPOINTMENT 2 05/19/2025 documented in this encounter Care Teams Business Banking Representative Relationship Specialty Start Date End Date Cesilia Gutiérrez PA [address] [place] [address] PCP - General Physician Automatic Print Developer 03/18/23 Mamadou Piedra MD [address] [place] [address] Medical Oncologist/Hematologis t Hematology and Oncology 04/03/23 documented as of this encounter
--- OUTSIDE RECORDS SUMMARY | 2025-05-21 08:17 | XMS_ITS | Clinical Summary ---
Author Organization [facility] Address [address] [place] [id number] Care Team Providers Care Clinical Engineer Name Role Phone Cesilia Gutiérrez Primary Care Provider [phone] Mamadou Piedra MD Unavailable [phone] Allergies Active Allergy Reactions Criticality Noted Date [...] Active Additional Information Patient not taking.Reported on 05/18/2025 traZODone (DESYREL) 100 mg tablet 5 Active ferrous sulfate 325 mg (65 mg of elemental iron) tabletIndicatio ns:Iron Deficiency Anemia Take 1 tablet (325 mg total) by mouth every other day 45 tablet 3 5 Active Active Problems Problem Noted Date Diagnosed Date Leukopenia 03/25/2023 Encounters Date Type Department Care Team Description 05/20/2025 Telephone [facility] Medicine Hematology [facility] Floor 6 [place] [address] Cesilia Umaña 05/19/2025 Results Follow-Up [facility] Medicine Physicians [facility] Hematology [address] [place] [phone] Aviva Albarado, KADI Comprehensive metabolic panel, CBC with auto differential, Differential, auto, Additional followed-up results: 4 05/18/2025 3:00 PM CDT Lab [facility] at [address] [address] Neutropenia, unspecified type; H/O iron deficiency anemia; Anemia due to vitamin B12 deficiency, unspecified B12 deficiency type 05/18/2025 2:30 PM CDT Office Visit [facility] Medicine Physicians [facility] Hematology [address] [place] [phone] Aviva Albarado, KADI Neutropenia, unspecified type (Primary Dx); Anemia due to vitamin B12 deficiency, unspecified B12 deficiency type; H/O iron deficiency anemia 04/28/[address] 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[employer] Gender Identity Not on file Sexual Orientation Not on file Obstetrics History Last Filed Vital Signs Vital Sign Reading Time Taken Comments Blood Pressure 139/78 05/18/2025 2:08 PM CDT Pulse 78 05/18/2025 2:08 PM CDT Temperature 36.4 C (97.5 F) 05/18/2025 2:08 PM CDT Respiratory Rate 18 05/18/2025 2:08 PM CDT Oxygen Saturation 97% 05/18/2025 2:08 PM CDT Inhaled Oxygen Concentration - - Weight 97 kg (213 lb 13.5 oz) 05/18/2025 2:08 PM CDT Height 153 cm (5' 0.24) 05/18/2025 2:08 PM CDT Body Mass Index 41.44 05/18/2025 2:08 PM CDT Plan of Treatment Health Maintenance Due Date Last Done Comments Breast Cancer Screening-Mammogram 1955 Colon Cancer Screening-Colonoscopy 1955 Depression Screening 1957 Fall Risk Assessment 1957 Hepatitis C Screening 1957 Osteoporosis Screening-Bone Density Scan 1957 Hepatitis B Screening 1975 Pneumococcal vaccine 65+ (1 of 1 - PCV) 2007 Zoster Vaccine (1 of 2) 2007 Well Visit 65+ 2022 Covid-19 Vaccine (5 - 2024-2 6 season) 2025 05/29/2022, 07/21/2021, 11/15/2020, Additional history exists Influenza Vaccine (#1) 2025 DTaP/Tdap/Td Vaccine (2 - Td or Tdap) 06/20/2025 06/20/2015 Procedures Procedure Name Priority Date/Time Associated Diagnosis Comments FERRITIN Routine 05/18/2025 2:02 PM CDT Neutropenia, unspecified type Anemia due to vitamin B12 deficiency, unspecified B12 deficiency type IRON PROFILE W/ IBC Routine 05/18/2025 2 :02 PM CDT Neutropenia, unspecified type H/O iron deficiency anemia VITAMIN B12 Routine 05/18/2025 2:02 PM CDT Neutropenia, unspecified type EGFR Routine 05/18/2025 2:02 PM CDT Neutropenia, unspecified type DIFFERENTIAL AUTO Routine 05/18/2025 2:0 2 PM CDT Neutropenia, unspecified type CBC WITH AUTO DIFFERENTIAL Routine 05/18/2025 2:02 PM CDT Neutropenia, unspecified type COMPREHENSIVE METABOLIC PANEL Routine 05/18/2025 2:02 PM CDT Neutropenia, unspecified type from Last 3 Months Results * (ABNORMAL) eGFR (05/18/2025 2:02 PM CDT) [facility] eGFR 55(L) >=60 mL/min/1. 73 m2 Comment: Interpretive Data Reference Interval Normal >/= 90 mL/min/1.73m2 Mildly decreased* 60 - 89 mL/min/1.73m2 Mildly to moderately decreased 45 - 59 mL/min/1.73m2 Moderately to severely decreased 30 - 44 mL/min/1.73m2 Severely decreased 15 - 29 mL/min/1.73m2 Kidney Failure < 15 mL/min/1.73m2 *Relative to young adult level Estimated glomerular filtration rate is determined by the 2020 CKD-EPI equation recommended by the National Kidney Foundation (A Unifying Approach to GFR Estimation: Recommendations of the NKF-ASK Task Force on Reassessing the Inclusion of Race in Diagnosing Kidney Disease, JASN 2020). The CKD-EPI equation should not be used for patients with unstable renal function and has not been validated in children and those over 70. Current interpretive data was last reviewed 2021. Testing performed by: [facility], [address] [place] [address], [place]., [address] Blood 05/18/2025 2:02 PM CDT 05/18/2025 2:05 PM CDT us Aviva Albarado NP LAB BLOOD ORDERABLES Fin al Result JENNIFER [address] [facility] Department [place] [address] * Differential, auto (05/18/2025 2:02 PM CDT) Neutrophil abs 2.63 1.50 - 6.50 K/cumm Comment:Testing performed by : [address] [address] Imm gran abs 0.02 0.00 - 0.10 K/cumm JENNIFER Comment:Testing performed by : [address] [address] Lymphocyte abs 0.90 0.80 - 3.30 K/cumm JENNIFER Comment:Testing performed by : [address] [address] Monocyte abs 0.40 0.20 - 0.80 K/cumm JENNIFER Comment:Testing performed by : [address] [address] Eosinophil abs 0.10 0.00 - 0.50 K/cumm JENNIFER Comment:Testing performed by : [address] [address] Basophil abs 0.06 0.00 - 0.10 K/cumm JENNIFER Comment:Testing performed by : [address] [address] Neutrophil pct 64.0 % JENNIFER Comment: Interpretive Data Percent cell count reference ranges are not reported, since discordance with absolute values may lead to misinterpretation of CBC data. Current Interpretive Data was last revised on 2017. Testing performed by: [address] [address] Imm gran pct 0.5 % JENNIFER Comment: Interpretive Data Percent cell count reference ranges are not reported, since discordance with absolute values may lead to misinterpretation of CBC data. Current Interpretive Data was last revised on 2017. Testing performed by: [address] [address] Lymphocyte pct 21.9 % JENNIFER Comment: Interpretive Data Percent cell count reference ranges are not reported, since discordance with absolute values may lead to misinterpretation of CBC data. Current Interpretive Data was last revised on 2017. Testing performed by: [address] [address] Monocyte pct 9.7 % JENNIFER Comment: Interpretive Data Percent cell count reference ranges are not reported, since discordance with absolute values may lead to misinterpretation of CBC data. Current Interpretive Data was last revised on 2017. Testing performed by: [address] [address] Eosinophil pct 2.4 % JENNIFER Comment: Interpretive Data Percent cell count reference ranges are not reported, since discordance with absolute values may lead to misinterpretation of CBC data. Current Interpretive Data was last revised on 2017. Testing performed by: [address] [address] Basophil pct 1.5 % JENNIFER Comment: Interpretive Data Percent cell count reference ranges are not reported, since discordance with absolute values may lead to misinterpretation of CBC data. Current Interpretive Data was last revised on 2017. Testing performed by: [address] [address] Blood 05/18/2025 2:02 PM CDT 05/18/2025 2:05 PM CDT us Aviva Albarado [employer] LAB BLOOD ORDERABLES Fin al Result [facility] [address] [facility] Department [place] [address] * (ABNORMAL) Iron profile w/ IBC (05/18/2025 2:02 PM CDT) Iron 52 35 - 145 mcg/dL Comment:Testing performed by : [address] [address] TIBC 301 250 - 400 mcg/dL JENNIFER ELIZABETH Comment:Testing performed by : [address] [address] Transferrin saturation 17(L) 20 - 50 % JENNIFER Comment:Testing performed by : [address] [address] Blood 05/18/2025 2:02 PM CDT 05/18/2025 3:53 PM CDT us Aviva Albarado NP LAB BLOOD ORDERABLES Fin al Result [facility] [address] [facility] Department [place] [address] * (ABNORMAL) CBC with auto differential (05/18/2025 2:02 PM CDT) WBC 4.11 3.80 - 9.90 K/cumm Comment:Testing performed by : [address] [address] Hgb 11.9 11.9 - 15.5 g/dL JENNIFER Comment:Testing performed by : [address] [address] Hct 35.5(L) 35.6 - 45.5 % JENNIFER Comment:Testing performed by : [address] [address] Plt 225 150 - 400 K/cumm JENNIFER Comment:Testing performed by : [address] [address] MPV 8.8(L) 9.1 - 12.3 fL JENNIFER Comment:Testing performed by : [address] [address] RBC 4.13 3.90 - 5.20 M/cumm JENNIFER ELIZABETH Comment:Testing performed by : [address] [address] MCV 86.0 81.3 - 96.4 fL JENNIFER Comment:Testing performed by : [address] [address] MCH 28.8 27.1 - 33.3 pg JENNIFER ELIZABETH Comment:Testing performed by : [address] [address] MCHC 33.5 32.3 - 35.7 g/dL JENNIFER ELIZABETH Comment:Testing performed by : [address] [address] RDW CV 13.0 11.1 - 14.9 % JENNIFER Comment:Testing performed by : [address] [address] RDW SD 40.1 35.7 - 48.1 fL JENNIFER Comment:Testing performed by : [address] [address] NRBC abs 0.00 0.00 - 0.01 K/cumm JENNIFER Comment:Testing performed by : [address] [address] ANC Prelim 2.63 1.50 - 6.50 K/cumm JENNIFER Comment: Interpretive Data The rapid ANC is a preliminary automated count and may vary from the final ANC (Neut Abs) reported in the WBC differential that follows. Current interpretive data was last revised 2024. Testing performed by: [address] [address] Blood 05/18/2025 2:02 PM CDT 05/18/2025 2:05 PM CDT Aviva Albarado [employer] LAB BLOOD ORDERABLES Fin al Result [address] [place] [address] * Ferritin (05/18/2025 2:02 PM CDT) Ferritin 55 13 - 150 ng/mL Comment:Testing performed by : [address] [address] Blood 05/18/2025 2:02 PM CDT 05/18/2025 3:53 PM CDT Aviva Albarado [employer] LAB BLOOD ORDERABLES Fin al Result [address] [place] [address] * Vitamin B12 (05/18/2025 2:02 PM CDT) Vitamin B12 527 230 - 1,250 pg/mL Comment:Testing performed by : [address] [address] Blood 05/18/2025 2:02 PM CDT 05/18/2025 3:53 PM CDT Aviva Albarado [employer] LAB BLOOD ORDERABLES [facility] al Result [facility] [address] [facility] Department [place] [address] * Comprehensive metabolic panel (05/18/2025 2:02 PM CDT) Pathologist [facility] Sodium 140 135 - 145 mmol/L Comment:Testing performed by : [address] [address] Potassium, pl 3.8 3.3 - 4.9 mmol/L JENNIFER Comment:Testing performed by : [address] [address] Chloride 104 97 - 110 mmol/L JENNIFER Comment:Testing performed by : [address] [address] CO2 23 22 - 32 mmol/L JENNIFER Comment:Testing performed by : [address] [address] Anion gap 13 2 - 15 mmol/L JENNIFER Comment:Testing performed by : [address] [address] BUN 14 6 - 25 mg/dL JENNIFER Comment:Testing performed by : [address] [address] Creatinine 1.10 0.60 - 1.10 mg/dL JENNIFER Comment:Testing performed by : [address] [address] Glucose 109 70 - 199 mg/dL JENNIFER Comment: Interpretive Data Fasting glucose >/= 126 mg/dl is diagnostic for diabetes. Fasting is defined as no caloric intake for at least 8 hours. Fasting glucose between 100 mg/dl to 125 mg/dl is diagnostic of prediabetes. In a patient with classic symptoms of hyperglycemia or hyperglycemic crisis, a random glucose >/= 200 mg/dl is diagnostic for diabetes. In the absence of unequivocal hyperglycemia, results should be confirmed by repeat testing. The classification and Diagnosis of Diabetes Diabetes Care 202; 46: S19-S40. Current interpretive data was last revised 2022. Testing performed by: [address] [address] Calcium 8.9 8.5 - 10.3 mg/dL JENNIFER Comment:Testing performed by : [address] [address] Bilirubin, total 0.3 0.1 - 1.2 mg/dL JENNIFER Comment:Testing performed by : [address] [address] Protein, pl 6.6 6.5 - 8.5 g/dL JENNIFER Comment:Testing performed by : [address] [address] Albumin 3.9 3.5 - 5.0 g/dL JENNIFER Comment:Testing performed by : [address] [address] Alk phos 64 40 - 130 Units/L JENNIFER Comment:Testing performed by : [address] [address] ALT 16 7 - 45 Units/L JENNIFER Comment:Testing performed by : [address] [address] AST 20 10 - 45 Units/L JENNIFER Comment:Testing performed by : [address] [address] Blood 05/18/2025 2:02 PM CDT 05/18/2025 2:05 PM CDT us Aviva Albarado NP LAB BLOOD ORDERABLES Fin al Result [facility]ENN[facility]ER [facility] Department [place] [address] from Last 3 Months Insurance [employer] CHOICE MEDICARE PPO [employer] FOR LIFE [employer] CHO[employer] MEDICARE PPO FOR LIFE Care Teams Clinical Engineer Relationship Specialty Start Date End Date Cesilia Gutiérrez PA [address] [place] [address] PCP - General Physician Mentally Impaired Teacher 03/18/23 Mamadou Piedra MD [address] [place] [place] [address] Medical Oncologist/Hematologis t Hematology and Oncology 04/03/23
--- OUTSIDE RECORDS SUMMARY | 2025-05-21 08:17 | XMS_ITS | Encounter Summary ---
Author Organization [facility] Address [address] [place] [address] Phone Care Team Providers Care Machinery Mover Name Role Phone Cesilia Gutiérrez Primary Care Provider [phone] Mamadou Piedra MD Unavailable [phone] Encounter Details Date Type Department Care Team (Late st Contact Info) Description 05/20/2025 Telephone [facility] Medicine Hematology [facility] Floor 6 [place] [address] Cesilia Umaña Social History Tobacco Use Types Packs/Day Years [...] on file 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 ----- Message from Sydney Bautista sent at 05/20/2025 8:13 AM CDT ----- Cesilia, appointments have been scheduled pt is aware, she did request a call back from medical staff in regards to a medication. ----- Message ----- From: Oliva Milton Sent: 05/20/2025 6:06 AM CDT To: Sydney Castorena CMA ----- Message ----- From: Cesilia Umaña Sent: 05/19/2025 3:31 PM CDT To: Evan Tineo [facility] Pool Please call pt to get labs in 3 mo and f/u labs in 6 mo with Aviva paul scheduled. Thank you documented in this encounter Plan of Treatment Not on file documented as of this encounter Visit Diagnoses Not on filedocumented in this encounter Care Teams Machinery Mover Relationship Specialty Start Date End Date Cesilia Gutiérrez PA [address] [place] [address] PCP - General Physician Simulation Technician 03/18/23 Mamadou Piedra MD [address] [place] [address] Medical Oncologist/Hematologis t Hematology and Oncology 04/03/23 documented as of this encounter
--- OUTSIDE RECORDS SUMMARY | 2025-05-21 08:17 | XMS_ITS | Clinical Summary ---
Author Organization [facility] Care Team Providers Care Psychiatric Orderly Name Role Phone Unavailable Primary Care Provider Unavailabl e Social History Tobacco Use Types Packs/Day Years Used Date Smoking Tobacco: Never Assessed Comments Unknown Sex and Gender Information Value Date Recorded Sex Assigned at Not on file Legal Sex Female 6:40 PM CDT Gender Identity Not on file Sexual Orientation Not on file Plan of Treatment Health Maintenance Due Date Last Done Comments Hepatitis C Virus (HCV) Screening 1955 TdaP Immunization 1955 Cologuard 2002 Colonoscopy 2002 Colorectal Cancer Screening 2002 Immunochemical Fecal Occult Blood 2002 Pneumococcal Immunization (5 0+ years) (1 of 1 - PCV) 2007 Zoster Immunization (1 of 2) 2007 Influenza Immunization (#1) 2025 SARS-COV-2 Immunization ( season) 2025 Respiratory Syncytial Virus (RSV) Immunization (Adult) (1 - 1-dose 75+ series) 2032 Hepatitis B Immunization Aged Out No longer eligible based on patient's age to complete this topic Human Papillomavirus (HPV) Immunization Aged Out No longer eligible b ased on patient's age to complete this topic Meningococcal Immunization (ACWY) Aged Out No longer eligible based on patient's age to complete this topic Rotavirus Immunization Aged Out No lo nger eligible based on patient's age to complete this topic
[2025-05-21 09:16] LABS: Albumin Level 3.9 g/dL (3.5-5.1); Anion Gap 6 mmol/L (4-12); Blood Urea Nitrogen 14 mg/dL (7-17); Calcium 8.9 mg/dL (8.4-10.2); Carbon Dioxide 24 mmol/L (22-30); Chloride 103 mmol/L (98-107); Estimated Glomerular Filt Rate 51; Glucose 107 mg/dL (65-110); Potassium 3.8 mmol/L (3.4-5.0); Sodium 133 mmol/L (137-145)
[2025-05-21 09:54] LABS: Total Protein Urine Random 13 mg/dL; Ur Ttl Prot Creatinine Ratio 0.31 mg/mg (0-0.20)
[2025-05-21 13:21] LABS: Parathyroid Intact 48.3 pg/mL (14.5-75.2)
== END 2025-05-21 08:13 | disposition home or self-care (01) ==
LOC: ANHLAB 08:14
PROVIDERS: PCP Family Medicine; Visit Provider Internal Medicine Nephrology
DX: I12.9 Hypertensive chronic kidney disease with stage 1 through stage 4 chronic kidney disease, or unspecified chronic kidney disease (principal); N18.31 Chronic kidney disease, stage 3a; N25.81 Secondary hyperparathyroidism of renal origin; E55.9 Vitamin D deficiency, unspecified
CPT/HCPCS: 36415; 80069; 82306; 82570; 83970; 84156